=== PATIENT | male | born 1980 | race Caucasian/White ===

== ENCOUNTER 2016-12-28 21:15 | Inpatient (IN) | payer SELFPAY ==
[~2016-12-28] VITALS: Ht 175.2 cm; Wt 98.0 kg
[2016-12-28 21:15] VITALS: BP 113/70
[~2016-12-28 21:15] MED LIST: ACETAMINOPHEN/B1 TA1 PO; BACTRIM DS 8001 TA1 PO; BUPRENORPHINE-N1 TAB SL; FIORICET 325 MG1 TAB PO; Fioricet 325 MG1 TAB PO; KEFLEX500 MG PO; MEDROL DOSEPAK4 MG PO; MOTRIN800 MG PO; Motrin,Rufen800 MG PO; NAPROSYN500 MG PO; ONDANSETRON HYDR4 M1 PO; Orphenadrine C100 MG PO; QUETIAPINE FUMA25 M1 PO; SINEMET 25-100M1 TAB PO; SUBOXONE 8 MG-1 EACH SL; SUBOXONE PO; TOBREX OPHTH S2.5 ML OPH; VIBRAMYCIN100 MG PO
--- NOTE | 2016-12-28 22:13 | NUR ---
PATIENT AGITATED IN BED TUGGING AT CATHETER. EDEN CATHETER DISCONTINUED BY NURSE. WILL CONTINUE TO MONITOR.
[2016-12-28 22:19] LABS: BASO # 0.1 10*3/uL (0.0-0.1); BASO % 0.5 % (0.0-1.0); EOS # 0.2 10*3/uL (0.0-0.4); EOS % 1.9 % (1.0-4.0); HEMATOCRIT 45.1 % (42.0-52.0); HEMOGLOBIN 15.2 g/dl (14.0-18.0); LYMPH # 4.6 10*3/uL (1.3-4.4); LYMPH % 37.6 % (27.0-41.0); MEAN CELL VOLUME 86.4 fl (80.0-94.0); MEAN CORPUSCULAR HGB 29.1 pg (27.0-31.0); MEAN CORPUSCULAR HGB CONC 33.7 g/dl (33.0-37.0); MEAN PLATELET VOLUME 9.2 fl (9.6-12.3); MONO # 1.3 10*3/uL (0.1-1.0); MONO % 10.3 % (3.0-9.0); NEUT % 49.5 % (47.0-73.0); PLATELET COUNT AUTOMATED 242 10*3/uL (130-400); RED BLOOD COUNT 5.22 10*6/uL (4.50-5.90); RED CELL DISTRI WIDTH 12.8 % (0-14.5); WHITE BLOOD COUNT 12.2 10*3/uL (4.8-10.8)
[2016-12-28 22:22] LABS: BILIRUBIN NEGATIVE (NEGATIVE); BLOOD NEGATIVE (NEGATIVE); CLARITY CLEAR (CLEAR); COLOR YELLOW (YELLOW); GLUCOSE NEGATIVE (NEGATIVE); KETONE NEGATIVE (NEGATIVE); LEUKO ESTERASE NEGATIVE (NEGATIVE); NITRITE NEGATIVE (NEGATIVE); PH 5.5 (5.0-9.0); SPECIFIC GRAVITY <= 1.005 (1.005-1.030); UROBILINOGEN 0.2 E.U./dl (0.2-1.0)
[2016-12-28 22:33] LABS: URINE AMPHETAMINES < 1000 (1000ng/ml); URINE BARBITURATES < 200 (200ng/ml); URINE BENZODIAZEPINES < 200 (200ng/ml); URINE CANNABINOIDS (THC) < 50 (50ng/ml); URINE COCAINE < 300 (300ng/ml); URINE METHADONE < 300 (300ng/ml); URINE OPIATES < 300 (300ng/ml)
[2016-12-28 22:35] VITALS: BP 98/47
[2016-12-28 22:35] LABS: ALBUMIN 3.4 gm/dl (3.1-4.5); ALKALINE PHOSPHATASE 65 U/L (45-117); BUN 5 mg/dl (7-24); CHLORIDE 104 mmol/L (98-107); CREATININE 0.73 mg/dL (0.70-1.30); MAGNESIUM 2.4 mg/dL (1.5-2.1); POTASSIUM 3.2 mmol/L (3.5-5.1); SGOT/AST 40 IU/L (3-35); SGPT/ALT 55 U/L (12-78); SODIUM 140 mmol/L (136-145); TOTAL PROTEIN 7.6 gm/dL (6.4-8.2)
[2016-12-28 22:35] LABS: BACTERIA TRACE
[2016-12-28 22:37] LABS: URINE PHENCYCLIDINE < 25 (25ng/ml)
--- NOTE | 2016-12-28 22:38 | NUR ---
PATIENT RESTING IN BED WITH EYES CLOSED. RESPIRATIONS REGULAR. PULSE OX 96% ON 2L NASAL CANNULA. NORMAL SINUS RHYTHM ON SURGICAL TECHNOLOGY INSTRUCTOR. WILL CONTINUE TO MONITOR.
[2016-12-28 22:48] VITALS: BP 96/45
--- NOTE | 2016-12-28 22:55 | NUR ---
DR. JUDGE NOTIFIED OF CRITICAL ETOH LEVEL 407.
[2016-12-28 23:18] VITALS: BP 109/66
[2016-12-28 23:34] VITALS: BP 109/58
[2016-12-28 23:58] VITALS: BP 114/75
--- NOTE | 2016-12-29 00:15 | NUR ---
A 36, admitted to ICCU, under the services of BARB Toribio DO with a diagnosis of ALCOHOL INTOXICATION. Chief complaint is PATIENT WAS DRINKING AND WAS FOUND UNREPONSIVE LAYING IN A GRAVEL DRIVEWAY. Patient arrived via stretcher from ER. Monitor applied. Initial assessment completed. Vital signs taken and recorded. BARB TORIBIO DO notified of admission to the unit. Orders received. See assessment for past medical history, medications and allergies. Patient and/or family oriented to unit. [facility] ICCU visitation policy reviewed. Clothing/patient valuable form completed. ANEUDY ROJAS
--- NOTE | 2016-12-29 01:09 | NUR ---
UNABLE TO UPDATE MED REC. PATIENT IS INTOXICATED.
--- NOTE | 2016-12-29 01:09 | NUR ---
WALLET AND MONEY TAKEN TO NURSING OFFICE AND PLACED INTO LOCK BOX.
[2016-12-29 02:00] VITALS: BP 106/72
[2016-12-29 04:36] LABS: BASO % 0.4 % (0.0-1.0); EOS # 0.2 10*3/uL (0.0-0.4); EOS % 2.4 % (1.0-4.0); HEMATOCRIT 48.2 % (42.0-52.0); HEMOGLOBIN 15.9 g/dl (14.0-18.0); LYMPH # 4.1 10*3/uL (1.3-4.4); LYMPH % 44.2 % (27.0-41.0); MEAN CELL VOLUME 86.8 fl (80.0-94.0); MEAN CORPUSCULAR HGB 28.6 pg (27.0-31.0); MEAN PLATELET VOLUME 9.9 fl (9.6-12.3); MONO # 0.6 10*3/uL (0.1-1.0); NEUT # 4.3 10*3/uL (2.3-7.9); NEUT % 46.9 % (47.0-73.0); PLATELET COUNT AUTOMATED 236 10*3/uL (130-400); RED BLOOD COUNT 5.55 10*6/uL (4.50-5.90); WHITE BLOOD COUNT 9.2 10*3/uL (4.8-10.8)
[2016-12-29 04:49] LABS: ACT PARTIAL THROMBO TIME 28.1 SECONDS (20.8-31.5)
[2016-12-29 04:53] LABS: BUN 5 mg/dl (7-24); CHLORIDE 112 mmol/L (98-107); CREATININE 0.71 mg/dL (0.70-1.30); POTASSIUM 3.8 mmol/L (3.5-5.1); SODIUM 145 mmol/L (136-145)
[2016-12-29 04:55] LABS: CHOLESTEROL 147 mg/dL (<200); TRIGLYCERIDES 115 mg/dl (<150); VLDL CHOLESTEROL 23 mg/dL (6-40)
[2016-12-29 05:05] LABS: HDL CHOLESTEROL 87 mg/dl (40-60); LDL CHOLESTEROL 37 mg/dL (9-159)
--- NOTE | 2016-12-29 07:17 | NUR ---
Shift chart check completed.24 HR chart check completed.
[2016-12-29 08:00] VITALS: BP 110/68
--- NOTE | 2016-12-29 11:05 | NUR ---
PT HAS BEEN SLEEPING EASILY MOST OF THE MORNING.
[2016-12-29 12:00] VITALS: BP 125/70
--- NOTE | 2016-12-29 13:36 | NUR ---
[facility] IN [facility] WILL PROVIDE PT WITH REHAB AND MEETING INFO.
--- NOTE | 2016-12-29 13:54 | NUR ---
DR DAWKINS AND RESIDENTS HAVE VISITED AND HAVE INDICATED TO THE PATIENT THAT HE WILL BE DISCHARGED TODAY. MOTHER TOOK HIS SOILED CLOTHES HOME AND BROUGHT OTHERS. PT HAS RECEIVED HIS FLU VACCINE. AWAITING THE DISCHARGE ORDER.
--- NOTE | 2016-12-29 14:25 | NUR ---
ON QUESTIONING PATIENT CLAIMS TO DRINK ALCOHOL, "FREQUENTLY" "NOT EVERY DAY". DENIES ANY HALLUCINATIONS/SHAKES IF HE DOES NOT DRINK.
--- NOTE | 2016-12-29 14:28 | NUR ---
[employer] HAS BROUGHT PT INFORMATION ON [employer] FOR ALCOHOL WITHDRAWL.
--- NOTE | 2016-12-29 14:37 | NUR ---
MEREDITH COLEMAN AND HEATHER HAVE BEEN NOTIFIED THAT [employer] HAS DELIVERED INFORMATION AND THAT PT IS ANXIOUS TO GO HOME. AWAITING DISCHARGE ORDER.
--- NOTE | 2016-12-29 14:47 | NUR ---
DISCHARGE INSTRUCTIONS TO HIM. MONITOR AND IV REMOVED. PT DISCHARGED IN STABLE CONDITION, AMBULATORY WITH HIS MOTHER.
== END 2016-12-29 14:47 | disposition home or self-care (01) | DRG 897 ==
LOC: ED 21:15 → EDHOLD 23:57 → ICCU 12-29 00:06
PROVIDERS: Emergency Medicine; Internal Medicine; ADMIT Internal Medicine
DX: F10.239 Alcohol dependence with withdrawal, unspecified (principal); E83.41 Hypermagnesemia; R74.0 Nonspecific elevation of levels of transaminase and lactic acid dehydrogenase [LDH]; F10.229 Alcohol dependence with intoxication, unspecified; D72.829 Elevated white blood cell count, unspecified; Z72.0 Tobacco use; Z53.29 Procedure and treatment not carried out because of patient's decision for other reasons

== ENCOUNTER 2020-09-24 23:29 | Inpatient (IN) | payer SELFPAY ==
[~2020-09-24] VITALS: Ht 198.1 cm; Wt 95.3 kg
[2020-09-24 23:51] VITALS: BP 124/84
[2020-09-24 23:52] LABS: BASO % 0.2 % (0.0-1.0); EOS # 0.1 10*3/uL (0.0-0.4); EOS % 0.4 % (1.0-4.0); HEMATOCRIT 49.4 % (42.0-52.0); LYMPH # 1.4 10*3/uL (1.3-4.4); LYMPH % 7.3 % (27.0-41.0); MEAN CELL VOLUME 87.3 fl (80.0-94.0); MEAN CORPUSCULAR HGB 27.6 pg (27.0-31.0); MEAN CORPUSCULAR HGB CONC 31.6 g/dl (33.0-37.0); MEAN PLATELET VOLUME 11.6 fl (9.6-12.3); MONO # 0.9 10*3/uL (0.1-1.0); NEUT # 16.2 10*3/uL (2.3-7.9); NEUT % 86.7 % (47.0-73.0); PLATELET COUNT AUTOMATED 199 10*3/uL (130-400); RED BLOOD COUNT 5.66 10*6/uL (4.50-5.90); RED CELL DISTRI WIDTH 13.4 % (0-14.5); WHITE BLOOD COUNT 18.7 10*3/uL (4.8-10.8)
[2020-09-25 00:25] LABS: ALBUMIN 3.4 gm/dl (3.1-4.5); ALKALINE PHOSPHATASE 63 U/L (45-117); BUN 18 mg/dl (7-24); CHLORIDE 108 mmol/L (98-107); CREATININE 1.28 mg/dL (0.70-1.30); POTASSIUM 4.7 mmol/L (3.5-5.1); SGOT/AST 43 IU/L (3-35); SGPT/ALT 76 U/L (12-78); SODIUM 138 mmol/L (136-145)
[2020-09-25 00:29] LABS: ETHYL ALCOHOL < 3.0 mg/dl (<3)
[2020-09-25 01:20] LABS: URINE AMPHETAMINES > 1000 (1000ng/ml); URINE BARBITURATES < 200 (200ng/ml); URINE BENZODIAZEPINES < 200 (200ng/ml); URINE CANNABINOIDS (THC) < 50 (50ng/ml); URINE COCAINE < 300 (300ng/ml); URINE METHADONE < 300 (300ng/ml); URINE OPIATES < 300 (300ng/ml)
[2020-09-25 01:25] LABS: URINE PHENCYCLIDINE < 25 (25ng/ml)
[2020-09-25 03:14] VITALS: BP 126/80
[2020-09-25 07:28] VITALS: BP 90/58
[2020-09-25 08:20] VITALS: BP 103/72
[2020-09-25 09:04] LABS: BILIRUBIN Negative (Negative); BLOOD Negative (Negative); CLARITY Cloudy (Clear); COLOR Yellow (Yellow); GLUCOSE 1+ (Negative); KETONE Negative (Negative); LEUKO ESTERASE Negative (Negative); NITRITE Negative (Negative); PH 5.5 (4.5-8.0)
[2020-09-25 09:14] LABS: BACTERIA 2+; CALCIUM OXALATE CRYSTALS 1+; MUCOUS 2+
[2020-09-25 12:00] VITALS: BP 103/62
[2020-09-25 16:00] VITALS: BP 103/63
[2020-09-25 20:00] VITALS: BP 100/55
[2020-09-26] VITALS: BP 110/69
[2020-09-26 04:00] VITALS: BP 110/60
[2020-09-26 06:23] LABS: ALBUMIN 3.2 gm/dl (3.1-4.5); ALKALINE PHOSPHATASE 56 U/L (45-117); BUN 14 mg/dl (7-24); CHLORIDE 104 mmol/L (98-107); CREATININE 0.61 mg/dL (0.70-1.30); SGOT/AST 37 IU/L (3-35); SGPT/ALT 81 U/L (12-78); SODIUM 136 mmol/L (136-145); TOTAL PROTEIN 6.3 gm/dL (6.4-8.2)
[2020-09-26 06:28] LABS: BASO # 0.1 10*3/uL (0.0-0.1); BASO % 0.4 % (0.0-1.0); EOS # 0.3 10*3/uL (0.0-0.4); EOS % 2.4 % (1.0-4.0); HEMATOCRIT 44.4 % (42.0-52.0); LYMPH # 4.4 10*3/uL (1.3-4.4); LYMPH % 36.5 % (27.0-41.0); MEAN CELL VOLUME 86.5 fl (80.0-94.0); MEAN CORPUSCULAR HGB 27.5 pg (27.0-31.0); MEAN CORPUSCULAR HGB CONC 31.8 g/dl (33.0-37.0); MEAN PLATELET VOLUME 10.7 fl (9.6-12.3); MONO # 0.8 10*3/uL (0.1-1.0); MONO % 6.3 % (3.0-9.0); NEUT # 6.5 10*3/uL (2.3-7.9); NEUT % 54.1 % (47.0-73.0); PLATELET COUNT AUTOMATED 227 10*3/uL (130-400); RED BLOOD COUNT 5.13 10*6/uL (4.50-5.90); RED CELL DISTRI WIDTH 13.2 % (0-14.5); WHITE BLOOD COUNT 11.9 10*3/uL (4.8-10.8)
[2020-09-26 06:29] LABS: POTASSIUM 3.6 mmol/L (3.5-5.1)
[2020-09-26 08:00] VITALS: BP 107/74
== END 2020-09-26 11:21 | disposition home or self-care (01) | DRG 918 ==
LOC: ED 23:29 → ICCU 09-25 07:53 → EDHOLD 09-25 07:53 → ICCU 09-25 08:04
PROVIDERS: Internal Medicine; ADMIT Internal Medicine; ATTEND Internal Medicine
DX: T40.601A Poisoning by unspecified narcotics, accidental (unintentional), initial encounter (principal); F11.23 Opioid dependence with withdrawal; E83.41 Hypermagnesemia; B18.2 Chronic viral hepatitis C; R73.9 Hyperglycemia, unspecified; E87.8 Other disorders of electrolyte and fluid balance, not elsewhere classified; R74.01 Elevation of levels of liver transaminase levels; I10 Essential (primary) hypertension; B19.20 Unspecified viral hepatitis C without hepatic coma; F17.210 Nicotine dependence, cigarettes, uncomplicated; Z71.6 Tobacco abuse counseling; Y92.89 Other specified places as the place of occurrence of the external cause; Z82.49 Family history of ischemic heart disease and other diseases of the circulatory system